=== PATIENT | female | born 1970 | race Caucasian/White ===

== ENCOUNTER 2017-01-30 18:29 | Emergency (ER) | payer BC, OTHER ==
[2017-01-30 18:40] VITALS: BMI 27.8
--- NOTE | 2017-01-30 19:51 | PDOC ---
History of Present Illness - General History Source: Patient Exam Limitations: No Limitations - History of Present Illness Initial Comments: The patient is a 46 yo F with a past medical history of heart murmur who presents with double vision and lightheadedness. The patient states that 1 week ago she felt cramps in her L leg that resolved. She states that 2 days ago she experienced blurry vision and lightheadedness that also resolved. This morning, she states she experienced double vision that last an hour. The patient also notes shes been getting headaches recently. She endorses 2 episodes of nausea last week. The patient denies weight changes. The patient states she took a recent trip to [place] and [employer] and returned on January 03. The patient notes she doesnt feel like herself. She denies diarrhea, vomiting and abdominal pain. The patient states she does not wear glasses or contacts. She notes she may be drinking more water than normal. She denies dysuria, hematuria, and urgency. Endorses mild frequency. She states she just finished her menstrual cycle and notes it was normal. Family Hx: DM, thyroid issues Social Hx: Occasional smoker, social ETOH use, denies illicit drug use <Елена Dexter - Last Filed: 01/30/17 20:53> <Mariluz Medeiros - Last Filed: 01/31/17 01:43> - General Chief Complaint: Lightheaded Stated Complaint: DIZZNESS Time Seen by Provider: 01/30/17 19:36 Past History <Елена Dexter - Last Filed: 01/30/17 20:53> - Past Medical History Anemia: Yes (IRON DEF.) Asthma: No Cancer: No Cardiac Disorders: Yes (MURMUR) CVA: No COPD: No CHF: No Dementia: No Diabetes: No GI Disorders: No Disorders: No HTN: No Hypercholesterolemia: No Liver Disease: No Seizures: No Thyroid Disease: No - Surgical History Abdominal Surgery: No Appendectomy: No Cardiac Surgery: No Cholecystectomy: No Lung Surgery: No Neurologic Surgery: No Orthopedic Surgery: No - Psycho/Social/Smoking Cessation Hx Suicidal Ideation: No Smoking History: Current some day smoker Have you smoked in the past 12 months: No Cigars Per Day: 1 Information on smoking cessation initiated: No Hx Alcohol Use: No Drug/Substance Use Hx: No Substance Use Type: None Hx Substance Use Treatment: No <Mariluz Medeiros - Last Filed: 01/31/17 01:43> - Past Medical History Allergies/Adverse Reactions: Allergies Allergy/AdvReac Type Severity Reaction Status Date / Time No Known Drug Allergies Allergy Verified 01/30/17 18:36 Home Medications: Ambulatory Orders NK [No Known Home Medication] 01/30/17 Review of Systems - Review of Systems Able to Perform ROS?: Yes Comments:: CONSTITUTIONAL: Absent: fever, chills, diaphoresis, generalized weakness, malaise, loss of appetite HEENT: Absent: rhinorrhea, nasal congestion, throat pain, throat swelling, difficulty swallowing, mouth swelling, ear pain, eye pain, visual Changes CARDIOVASCULAR: Absent: chest pain, syncope, palpitations, irregular heart rate, peripheral edema RESPIRATORY: Absent: cough, shortness of breath, dyspnea with exertion, orthopnea, wheezing, stridor, hemoptysis GASTROINTESTINAL: +nausea Absent: abdominal pain, abdominal distension, vomiting, diarrhea, constipation, melena, hematochezia GENITOURINARY: +mild frequency Absent: dysuria, hesitancy, hematuria, flank pain, genital pain MUSCULOSKELETAL: Absent: myalgia, arthralgia, joint swelling SKIN: Absent: rash, itching, pallor ENDOCRINE: Absent: unexplained weight gain, unexplained weight loss, heat intolerance, cold intolerance NEUROLOGIC: +headache, lightheadedness, blurry vision, double vision Absent: focal weakness or paresthesias, unsteady gait, seizure, mental status changes, bladder or bowel incontinence PSYCHIATRIC: Absent: anxiety, depression, suicidal or homicidal ideation, hallucinations. <Елена Dexter - Last Filed: 01/30/17 20:53> *Physical Exam - Vital Signs Last Vital Signs Temp Pulse Resp BP Pulse Ox 98.1 F 64 18 92/62 98 01/30/17 18:36 01/30/17 18:36 01/30/17 18:36 01/30/17 18:36 01/30/17 18:36 - Physical Exam Comments: GENERAL: Well developed, well nourished. Awake and alert. No acute distress. HEENT: Normocephalic, atraumatic. PERRLA, EOMI. No conjunctival pallor. Sclera are non- icteric. Moist mucous membranes. Oropharynx is clear. No nystagmus. NECK: Supple. Full ROM. No JVD. Carotid pulses 2+ and symmetric, without bruits. No thyromegaly. No lymphadenopathy. CARDIOVASCULAR: Regular rate and rhythm. No murmurs, rubs, or gallops. Distal pulses are 2+ and symmetric. PULMONARY: No evidence of respiratory distress. Lungs clear to auscultation bilaterally. No wheezing, rales or rhonchi. ABDOMINAL: Soft. Non-tender. Non-distended. No rebound or guarding. No organomegaly. Normoactive bowel sounds. MUSCULOSKELETAL Normal range of motion at all joints. No bony deformities or tenderness. No CVA tenderness. EXTREMITIES: No cyanosis. No clubbing. No edema. No calf tenderness. SKIN: Warm and dry. Normal capillary refill. No rashes. No jaundice. NEUROLOGICAL: Alert, awake, appropriate. Cranial nerves 2-12 intact. No deficits to light touch and temperature in face, upper extremities and lower extremities. No motor deficits in the in face, upper extremities and lower extremities. Normoreflexic in the upper and lower extremities. Normal speech. Toes are down-going bilaterally. Gait not assessed. PSYCHIATRIC: Cooperative. Good eye contact. Appropriate mood and affect. <Елена Dexter - Last Filed: 01/30/17 20:53> - Vital Signs Last Vital Signs Temp Pulse Resp BP Pulse Ox 98.1 F 64 18 92/62 98 01/30/17 18:36 01/30/17 18:36 01/30/17 18:36 01/30/17 18:36 01/30/17 18:36 <Mariluz Medeiros - Last Filed: 01/31/17 01:43> Heart Score/ECG Review #1 Sinus bradycardia @ 53 bpm. <IsaccЕлена - Last Filed: 01/30/17 20:53> ED Treatment Course - LABORATORY CBC & Chemistry Diagram: 01/30/17 20:28 01/30/17 20:28 <JaimeluzЕлена - Last Filed: 01/30/17 20:53> - LABORATORY CBC & Chemistry Diagram: 01/30/17 20:28 01/30/17 20:28 <Mariluz Medeiros - Last Filed: 01/31/17 01:43> Medical Decision Making - Medical Decision Making 01/30/17 20:12 Pt comes with blurry vision x 2 days and double vision this AM. Pt states that she also has lightheadedness. She has low BP today. She states that she is eating and drinking normallly; no increased thirst or urination - however pt has a fam hx of DM. SHe also has a fam hx of thyroid disorder. SHe has never had her vision checked in recent years and she has some difficulty with vision that she never corrected. 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 No N/V/D Menses is normal. Pt has no abdominal pains or fever or SOB or CP. 01/31/17 01:[address] normal, Labs normal, exam normal; she will be discharged and asked to follow with neuro as an outpatient <Mariluz Medeiros - Last Filed: 01/31/17 01:43> *DC/Admit/Observation/Transfer - Attestations Scribe Attestion: Documentation prepared by Елена Dexter, acting as medical assistant internal medicine for Mariluz Medeiros MD/DO. <Елена Dexter - Last Filed: 01/30/17 20:53> - Discharge Dispostion Admit: No <Mariluz Medeiros - Last Filed: 01/31/17 01:43> Diagnosis at time of Disposition: History of double vision, Dizziness, nonspecific - Discharge Dispostion Disposition: HOME Condition at time of disposition: Stable - Referrals Referrals: Javier Dean MD [Staff Physician] - - Patient Instructions Printed Discharge Instructions: Dizziness, Nonvertigo
[2017-01-30] MEDS ORDERED: SODIUM CHLORIDE 0.9% 500 ML INFUS.BAG IV ONE (19:52)
[2017-01-30 20:34] LABS: EOSINOPHIL 2.2 % (0-4.5); MCH 29.9 pg (25.7-33.7); MCHC 33.6 g/dl (32.0-36.0); MEAN CELL VOLUME 89.2 fl (80-96); MEAN PLT VOLUME 8.8 fl (7.5-11.1); NEUTROPHILS 50.2 % (42.8-82.8); PLATELET COUNT 273 K/MM3 (134-434); RDW 14.1 % (11.6-15.6); WHITE BLOOD COUNT 9.3 K/mm3 (4.0-10.0)
[2017-01-30 20:44] LABS: URINE APPEARANCE CLEAR; URINE BILIRUBIN NEGATIVE (NEGATIVE); URINE BLOOD NEGATIVE (NEGATIVE); URINE COLOR LTYELLOW; URINE GLUCOSE (UA) NEGATIVE (NEGATIVE); URINE KETONE NEGATIVE (NEGATIVE); URINE LEUK ESTERASE NEGATIVE (NEGATIVE); URINE NITRITE NEGATIVE (NEGATIVE); URINE PROTEIN NEGATIVE (NEGATIVE); URINE UROBILINOGEN NEGATIVE mg/dL (0.2-1.0)
[2017-01-30 20:47] LABS: INR 1.13 (0.82-1.09); PROTHROMBIN TIME (PATIENT) 12.5 SEC (9.98-11.88)
[2017-01-30 21:00] LABS: ALBUMIN 3.7 g/dl (3.4-5.0); ANION GAP 6 (8-16); BILIRUBIN,TOTAL 0.3 mg/dL (0.2-1.0); CALCIUM 8.6 mg/dL (8.5-10.1); CO2 26 mmol/L (21-32); CREATININE 1.1 mg/dL (0.55-1.02); GLUCOSE,RANDOM 82 mg/dL (74-106); SGPT/ALT 43 U/L (12-78); TOT PROT 7.6 g/dl (6.4-8.2)
[2017-01-30 21:01] LABS: ALK PHOS 79 U/L (45-117)
[2017-01-30 21:32] LABS: SGOT/AST 26 U/L (15-37)
[2017-01-30 22:31] VITALS: BP 135/80; PULSE 87; TEMP 98.3
--- NOTE | 2017-02-01 08:16 | EKG ---
Test Reason : Blood Pressure : / mmHG Vent. Rate : 053 BPM Atrial Rate : 053 BPM P-R Int : 134 ms QRS Dur : 084 ms QT Int : 404 ms P-R-T Axes : 031 006 023 degrees QTc Int : 379 ms SINUS BRADYCARDIA OTHERWISE NORMAL ECG WHEN COMPARED WITH ECG OF 24-MAR-2015 07:18, NO SIGNIFICANT CHANGE WAS FOUND Confirmed by ALONA SOUTH MD ([id number]) on 02/01/2017 8:16:18 AM Referred By: Confirmed By:ALONA SOUTH MD
== END 2017-01-30 22:34 | disposition home or self-care (01) ==
LOC: JER 18:29
DX: R42 Dizziness and giddiness (principal); R53.2 Functional quadriplegia; R01.1 Cardiac murmur, unspecified; D50.9 Iron deficiency anemia, unspecified; Z72.0 Tobacco use
CPT/HCPCS: 36415; 70450-TC; 80053; 81003; 84703; 85025; 85610; 93005; 93010; 99285-25

== ENCOUNTER 2018-07-01 17:09 | Emergency (ER) | payer OTHER ==
[2018-07-01 17:17] VITALS: BP 102/38; PULSE 60; TEMP 98; BMI 30.2
--- NOTE | 2018-07-01 18:18 | PDOC ---
History of Present Illness - General Chief Complaint: Chest Pain Stated Complaint: CHEST PAIN Time Seen by Provider: 07/01/18 18:10 History Source: Patient Exam Limitations: Clinical Condition - History of Present Illness Initial Comments: 07/01/18 18:22 Patient with no significant past medical history present with complaint of aching midsternal chest pain since yesterday. Patient reported she hadn't bilateral breast augmentation done 16 years ago and needs to be redone and was to make sure everything was fine. Patient described pain as 2/10 aching pain localized to mid chest area. Patient denies shortness of breath, dizziness, sweats, nausea or vomiting. Patient denies any numbness or tingling sensation. Timing/Duration: 24 hours Past History - Past Medical History Allergies/Adverse Reactions: Allergies Allergy/AdvReac Type Severity Reaction Status Date / Time No Known Drug Allergies Allergy Verified 07/01/18 17:14 Home Medications: Ambulatory Orders NK [No Known Home Medication] 01/30/17 Anemia: Yes (IRON DEF.) Asthma: No Cancer: No Cardiac Disorders: Yes (MURMUR) CVA: No COPD: No CHF: No Dementia: No Diabetes: No GI Disorders: No Disorders: No HTN: No Hypercholesterolemia: No Liver Disease: No Seizures: No Thyroid Disease: No - Surgical History Abdominal Surgery: No Appendectomy: No Cardiac Surgery: No Cholecystectomy: No Lung Surgery: No Neurologic Surgery: No Orthopedic Surgery: No - Immunization History Immunization Up to Date: Yes - Suicide/Smoking/Psychosocial Hx Smoking History: Never smoked Have you smoked in the past 12 months: No Cigars Per Day: 1 Information on smoking cessation initiated: No Hx Alcohol Use: No Drug/Substance Use Hx: No Substance Use Type: None Hx Substance Use Treatment: No Review of Systems - Review of Systems Able to Perform ROS?: Yes Is the patient limited German proficient: No Constitutional: No: Fever, Malaise, Weakness HEENTM: No: Blurred Vision, Recent change in vision, Double Vision Respiratory: No: Symptoms reported, See HPI, Cough, Orthopnea, Shortness of Breath, SOB with Exertion, SOB at Rest, Stridor, Wheezing, Productive cough, Hemoptysis, Other Cardiac (ROS): Yes: See HPI, Chest Tightness (mild). No: Chest Pain, Edema, Irregular Heart Rate, Lightheadedness, Palpitations, Syncope, Other ABD/GI: No: Nausea, Vomiting All Other Systems: Reviewed and Negative *Physical Exam - Vital Signs Last Vital Signs Temp Pulse Resp BP Pulse Ox 98.0 F 60 16 102/38 L 98 07/01/18 17:14 07/01/18 17:14 07/01/18 17:14 07/01/18 17:14 07/01/18 17:14 - Physical Exam Comments: 07/01/18 18:24 GENERAL: Well developed, well nourished. Awake and alert. No acute distress. HEENT: Normocephalic, atraumatic. PERRLA, EOMI. No conjunctival pallor. Sclera are non-icteric. Moist mucous membranes. Oropharynx is clear. NECK: Supple. Full ROM. CARDIOVASCULAR: Regular rate and rhythm. No murmurs, rubs, or gallops. Distal pulses are 2+ and symmetric. PULMONARY: No evidence of respiratory distress. Lungs clear to auscultation bilaterally. No wheezing, rales or rhonchi. ABDOMINAL: Soft. Non-tender. Non-distended. No rebound or guarding. No organomegaly. Normoactive bowel sounds. MUSCULOSKELETAL Normal range of motion at all joints. EXTREMITIES: No cyanosis. No clubbing. No edema. No calf tenderness. SKIN: Warm and dry. Normal capillary refill. No rashes. No jaundice. NEUROLOGICAL: Alert, awake, appropriate. Gait is normal without ataxia. PSYCHIATRIC: Cooperative. Good eye contact. Appropriate mood General Appearance: Yes: Nourished, Appropriately Dressed. No: Apparent Distress Moderate Sedation - Procedure Monitoring Vital Signs: Procedure Monitoring Vital Signs Temperature 98.0 F 07/01/18 17:14 Pulse Rate 60 07/01/18 17:14 Respiratory Rate 16 07/01/18 17:14 Blood Pressure 102/38 L 07/01/18 17:14 O2 Sat by Pulse Oximetry (%) 98 07/01/18 17:14 ED Treatment Course - RADIOLOGY Radiology Studies Ordered: Category Date Time Status CHEST PA & LAT [RAD] Stat Radiology 07/01/18 18:17 Ordered Medical Decision Making - Medical Decision Making 07/01/18 18:25 She with no significant past medication present with complaint of 2 of 10 aching midsternal chest pain since yesterday with no other symptoms. Clinical exam unremarkable with lungs clear to auscultation bilateral and no more heart exam. EKG shows normal sinus rhythm. Chest x-ray ordered to rule out acute Pathology. Symptoms likely muscular skeletal related and patient will be discharged home to take Motrin as needed for pain and PCP follow-up. 07/01/18 18:38 Chest x-ray shows no acute infiltrate or pathology. Patient is stable for discharge with PCP follow-up and strict follow-up to ED if symptoms worsens. *DC/Admit/Observation/Transfer Diagnosis at time of Disposition: Atypical chest pain - Discharge Dispostion Disposition: HOME Condition at time of disposition: Stable Decision to Admit order: No - Referrals - Patient Instructions Printed Discharge Instructions: DI for Atypical Chest Pain Additional Instructions: Your chest x-ray was normal. EKG was normal. Follow-up with primary care. Come back to emergency room if worsening chest pain, shortness of breath, and dizziness with vomiting. - Post Discharge Activity
--- NOTE | 2018-07-02 09:16 | EKG ---
Test Reason : Blood Pressure : / mmHG Vent. Rate : 054 BPM Atrial Rate : 054 BPM P-R Int : 136 ms QRS Dur : 092 ms QT Int : 426 ms P-R-T Axes : 056 034 042 degrees QTc Int : 403 ms POOR DATA QUALITY, INTERPRETATION MAY BE ADVERSELY AFFECTED SINUS BRADYCARDIA OTHERWISE NORMAL ECG WHEN COMPARED WITH ECG OF 30-JAN-2017 20:49, NO SIGNIFICANT CHANGE WAS FOUND Confirmed by AKOSUA ZHU, ALONA ([id number]) on 07/02/2018 9:15:58 AM Referred By: Confirmed By:ALONA SOUTH MD
== END 2018-07-01 18:54 | disposition home or self-care (01) ==
LOC: JERFT 17:09
DX: R07.89 Other chest pain (principal); D50.9 Iron deficiency anemia, unspecified; R01.1 Cardiac murmur, unspecified
CPT/HCPCS: 71046-TC-FY; 93005; 93010; 99281-25

== ENCOUNTER 2019-09-01 19:45 | Inpatient (IN) | payer BC, OTHER ==
[2019-09-01 19:48] VITALS: BMI 28.3
--- NOTE | 2019-09-01 20:26 | PDOC ---
History of Present Illness - General Chief Complaint: Vomiting/Diarrhea Stated Complaint: DIARRHEA / COUGH Time Seen by Provider: 09/01/19 20:16 History Source: Patient Exam Limitations: No Limitations Past History - Travel Traveled outside of the country in the last 30 days: No Close contact w/someone who was outside of country & ill: No - Past Medical History Allergies/Adverse Reactions: Allergies Allergy/AdvReac Type Severity Reaction Status Date / Time No Known Drug Allergies Allergy Verified 09/01/19 19:48 Home Medications: Ambulatory Orders NK [No Known Home Medication] 01/30/17 Anemia: Yes (IRON DEF.) Asthma: No Cancer: No Cardiac Disorders: Yes (MURMUR) CVA: No COPD: No CHF: No Dementia: No Diabetes: No GI Disorders: No Disorders: No HTN: No Hypercholesterolemia: No Liver Disease: No Seizures: No Thyroid Disease: No - Surgical History Abdominal Surgery: No Appendectomy: No Cardiac Surgery: No Cholecystectomy: No Lung Surgery: No Neurologic Surgery: No Orthopedic Surgery: No - Immunization History Immunization Up to Date: Yes - Psycho Social/Smoking Cessation Hx Smoking History: Never smoked Have you smoked in the past 12 months: No Cigars Per Day: 1 Hx Alcohol Use: No Drug/Substance Use Hx: No Substance Use Type: None Hx Substance Use Treatment: No Review of Systems - Review of Systems Able to Perform ROS?: Yes Comments:: 09/01/19 21:59 CONSTITUTIONAL: Absent: fever, chills, diaphoresis, generalized weakness, malaise, loss of appetite HEENT: Absent: rhinorrhea, nasal congestion, throat pain, throat swelling, difficulty swallowing, mouth swelling, ear pain, eye pain, visual Changes CARDIOVASCULAR: Absent: chest pain, loss of consciousness, palpitations, irregular heart rate, peripheral edema RESPIRATORY: Present: cough Absent: shortness of breath, dyspnea with exertion, orthopnea, wheezing, stridor, hemoptysis GASTROINTESTINAL: Present: Nausea, vomiting, diarrhea Absent: abdominal pain, abdominal distension, constipation, melena, hematochezia GENITOURINARY: Absent: dysuria, frequency, urgency, hesitancy, hematuria, flank pain, genital pain MUSCULOSKELETAL: Absent: myalgia, arthralgia, joint swelling SKIN: Absent: rash, itching, pallor HEMATOLOGIC/IMMUNOLOGIC: Absent: easy bleeding, easy bruising, lymphadenopathy, frequent infections ENDOCRINE: Absent: unexplained weight gain, unexplained weight loss, heat intolerance, cold intolerance NEUROLOGIC: Absent: headache, focal weakness or paresthesias, dizziness, unsteady gait, se izure, mental status changes, bladder or bowel incontinence PSYCHIATRIC: Absent: anxiety, depression, suicidal or homicidal ideation, hallucinations. Is the patient limited Spanish proficient: No *Physical Exam - Vital Signs Last Vital Signs Temp Pulse Resp BP Pulse Ox 97.3 F L 66 18 115/42 L 99 09/01/19 19:46 09/01/19 19:46 09/01/19 19:46 09/01/19 19:46 09/01/19 19:46 - Physical Exam 09/01/19 22:09 GENERAL: Well developed, well nourished. Awake and alert. No acute distress. HEENT: Normocephalic, atraumatic. PERRLA, EOMI. No conjunctival pallor. Sclera are non- icteric. Moist mucous membranes. Oropharynx is clear. NECK: Supple. Full ROM. No lymphadenopathy. CARDIOVASCULAR: Regular rate and rhythm. No murmurs, rubs, or gallops. Distal pulses are 2+ and symmetric. PULMONARY: No evidence of respiratory distress. Lungs clear to auscultation bilaterally. No wheezing, rales or rhonchi. ABDOMINAL: TTP to the RUQ and suprapubic area. (+) ramos's sign. Soft. Non-tender. Non- distended. No rebound or guarding. No organomegaly. Normoactive bowel sounds. MUSCULOSKELETAL Normal range of motion at all joints. No bony deformities or tenderness. No CVA tenderness. EXTREMITIES: No cyanosis. No clubbing. No edema. No calf tenderness. SKIN: Warm and dry. Normal capillary refill. No rashes. No jaundice. NEUROLOGICAL: Alert, awake, appropriate. Cranial nerves 2-12 intact. No deficits to light touch and temperature in face, upper extremities and lower extremities. No motor deficits in the in face, upper extremities and lower extremities. Normoreflexic in the upper and lower extremities. Normal speech. Toes are down-going bilaterally. Gait is normal without ataxia. PSYCHIATRIC: Cooperative. Good eye contact. Appropriate mood and affect. ED Treatment Course - LABORATORY CBC & Chemistry Diagram: 09/01/19 22:00 09/01/19 22:00 Medical Decision Making - Medical Decision Making 09/01/19 23:47 The patient is a 48 y/o F with no PMH who presents to the ER for cough, abdominal pain, nausea, vomiting, and diarrhea for three days. She states she is having 3-4 diarrhea movements every day with multiple episodes of vomiting. She states the pain is colicky. She notes the pain is mostly in the RUQ. Of note the patient is also concerned she may have lozoya virus as one of her co-workers is being voluntarily quarantined after attending an event where a person tested positive for lozoya virus. The patient is unsure of the co-worker who is being quarantined and does not know if she has been in close contact with them. According to the patient her coworker is not displaying symptoms of coronavirus per the email that was sent by her office. Pt is currently afebrile, and has not traveled in the past 30 days. PCP: Dr. Kaila Gotti A/P: abdominal pain On exam patient has right upper quadrant tenderness with a positive Ramos sign. Patient has not coughed while in the ER. Unlikely coronavirus as patient mostly has GI symptoms and is afebrile. Basic labs, fluids and right upper quadrant ultrasound ordered. Labs show liver enzymes mildly elevated Right upper quadrant ultrasound as read by imaging on-call: The gallbladder is contracted making it difficult to evaluate. The gallbladder wall varies between normal and mildly thickened. This may be due to nondistention. No gallstones or pericholecystic fluid noted. The common bile duct is borderline/normal dilated approximately 6.5 to 7.5 cm Cannot r/o choledocholithiasis at this time given mildly elevated liver enzymes, abdominal pain and dilated CBD ; will need MRCP Zosyn 4.5g for abx Admit to hospitalists; case discussed with Dr. Sandhu, attending Dr. Davalos Discharge - Discharge Information Problems reviewed: Yes Clinical Impression/Diagnosis: RUQ pain, Dilated cbd, acquired Condition: Stable - Admission Yes - Follow up/Referral - Patient Discharge Instructions - Post Discharge Activity
[2019-09-01] MEDS ORDERED: SODIUM CHLORIDE 1,000 ML IV STA (20:43)
[2019-09-01] MEDS ORDERED: ONDANSETRON 4 MG/2 ML VIAL IVPUSH ONE (20:43)
[2019-09-01] MEDS ORDERED: ONDANSETRON 4 MG/2 ML VIAL ONE (21:07)
[2019-09-01 22:17] LABS: BASO % 0.5 % (0-2.0); EOS % 1.8 % (0-4.5); HEMATOCRIT 37.8 % (32.4-45.2); HEMOGLOBIN 12.6 GM/dL (10.7-15.3); LYMPH % 43.9 % (8-40); MCH 29.9 pg (25.7-33.7); MCHC 33.4 g/dl (32.0-36.0); MEAN CELL VOLUME 89.5 fl (80-96); MEAN PLT VOLUME 9.2 fl (7.5-11.1); MONO % 6.9 % (3.8-10.2); NEUT % 46.9 % (42.8-82.8); PLATELET COUNT 302 K/MM3 (134-434); RBC 4.22 M/mm3 (3.60-5.2); RDW 13.2 % (11.6-15.6); WHITE BLOOD COUNT 6.8 K/mm3 (4.0-10.0)
[2019-09-01 22:37] LABS: PROTHROMBIN TIME (PATIENT) 11.8 SEC (9.7-13.0)
[2019-09-01 22:51] LABS: ALBUMIN 3.8 g/dl (3.4-5.0); BILIRUBIN,TOTAL 0.3 mg/dL (0.2-1); BLOOD UREA NITROGEN 10.6 mg/dL (7-18); CALCIUM 9.4 mg/dL (8.5-10.1); CREATININE 0.8 mg/dL (0.55-1.3); POTASSIUM 5.7 mmol/L (3.5-5.1); TOT PROT 7.8 g/dl (6.4-8.2)
[2019-09-02] MEDS ORDERED: PIPERACILLIN/TAZOB 4.5 GM 4.5 GM in DEXTROSE 5%-WATER 100 ML IVPB ONE (00:01)
[2019-09-02] MEDS ORDERED: PIPERACILLIN/TAZOB 4.5 GM 4.5 GM/100 ML BAG IVPB ONE (00:21)
[2019-09-02] MEDS ORDERED: SODIUM CHLORIDE 1,000 ML IV STA (00:30)
[2019-09-02 00:47] LABS: HCG,QUALITATIVE URINE Negative
[2019-09-02 00:55] LABS: EPI CELLS 12.1 /HPF (0-5/HPF); HYALINE CASTS 5 /lpf (0-8); PH,URINE 5.5 (5.0-8.0); URINE APPEARANCE CLOUDY; URINE BACTERIA 79.1 /hpf (NEGATIVE); URINE BILIRUBIN NEGATIVE (NEGATIVE); URINE COLOR YELLOW; URINE GLUCOSE (UA) NEGATIVE (NEGATIVE); URINE KETONE NEGATIVE (NEGATIVE); URINE LEUK ESTERASE TRACE (NEGATIVE); URINE NITRITE NEGATIVE (NEGATIVE); URINE PROTEIN NEGATIVE (NEGATIVE); URINE RBC 5 /hpf (0-4); URINE UROBILINOGEN 0.2 mg/dL (0.2-1.0); URINE WBC 7 /hpf (0-5)
[2019-09-02] MEDS ORDERED: ONDANSETRON 4 MG/2 ML VIAL IVPUSH PRN (01:51)
[2019-09-02] MEDS ORDERED: INSULIN (NOVOLOG) ASPART 100 UNITS/ML 10ML VIAL SQ ONE (01:52)
[2019-09-02] MEDS ORDERED: DEXTROSE 50%-WATER - 25 GM/50 ML VIAL IVPUSH ONE (01:52)
--- NOTE | 2019-09-02 01:53 | HP ---
CHIEF COMPLAINT: Abdominal pain PCP: Dr. Kaila Gotti HISTORY OF PRESENT ILLNESS: 48F no significant PMH who presents with 2 weeks of intermittent abdominal pain. Her pain is located in the right upper and lower quadrant, and ranges from 5/10- 7/10 when it occurs. Patient has had associated nausea with the abdominal pain, and had 2 episodes of NBNB emesis earlier this week. She has had 3 days of diarrhea, she had 4 episodes today. She endorses one episode of blood on the toilet paper but attributes to a history of hemorrhoids and has not had blood with other bowel movements. She has not had any change in diet, no one at home has had similar symptoms. She denies fever, cough, dysuria, hematuria, chest pain, and shortness of breath. Of note she has a questionable sick contact at work who was recently quarantined for being at an event with an individual who has confirmed coronavirus; this is what prompted her to come to the hospital today. ER course was notable for: (1) RUQ was completed preliminary read showed: the gallbladder is contracted making it difficult to evaluate. The gallbladder wall varies between normal and mildly thickened. This may be due to nondistention. No gallstones or pericholecystic fluid. Normal liver.Common bile duct is borderline normal/ dilated at approximately 6.5-7.5 cm. While this is borderline, recommend correlation with biliary enzyme to help exclude biliary obstruction. Nonobstructing right renal calculus. No right hydronephrosis. No right upper quadrant free fluid. (2) Zosyn 4.5 given (3) EKG done: NSR, Qtc 398 Recent Travel: None PAST MEDICAL HISTORY: None FAMILY MEDICAL HISTORY: None PAST SURGICAL HISTORY: None Social History: Smoking: Denies Alcohol: Occasional Drugs: Denies Allergies No Known Drug Allergies Allergy (Verified 09/01/19 19:48) HOME MEDICATIONS: Home Medications Medication Instructions Recorded NK [No Known Home Medication] 01/30/17 REVIEW OF SYSTEMS CONSTITUTIONAL: Absent: fever, chills, diaphoresis, generalized weakness, malaise, loss of appetite, weight change HEENT: Absent: rhinorrhea, nasal congestion, throat pain, throat swelling, difficulty swallowing, mouth swelling, ear pain, eye pain, visual changes CARDIOVASCULAR: Absent: chest pain, syncope, palpitations, irregular heart rate, lightheadedness, peripheral edema RESPIRATORY: Absent: cough, shortness of breath, dyspnea with exertion, orthopnea, wheezing, stridor, hemoptysis GASTROINTESTINAL: Present: Abdominal pain, nausea, vomiting,diarrhea. Absent: abdominal distension, constipation, melena, hematochezia GENITOURINARY: Absent: dysuria, frequency, urgency, hesitancy, hematuria, flank pain, genital pain MUSCULOSKELETAL: Absent: myalgia, arthralgia, joint swelling, back pain, neck pain SKIN: Absent: rash, itching, pallor HEMATOLOGIC/IMMUNOLOGIC: Absent: easy bleeding, easy bruising, lymphadenopathy, frequent infections ENDOCRINE: Absent: unexplained weight gain, unexplained weight loss, heat intolerance, cold intolerance NEUROLOGIC: Absent: headache, focal weakness or paresthesias, dizziness, unsteady gait, seizure, mental status changes, bladder or bowel incontinence PSYCHIATRIC: Absent: anxiety, depression, suicidal or homicidal ideation, hallucinations. PHYSICAL EXAMINATION Vital Signs - 24 hr 09/01/19 19:46 Temperature 97.3 F L Pulse Rate 66 Respiratory 18 Rate Blood Pressure 115/42 L O2 Sat by Pulse 99 Oximetry (%) GENERAL: Awake, alert, and fully oriented, in no acute distress. HEAD: Normal with no signs of trauma. EYES: EOMI EARS, NOSE, THROAT: Moist mucous membranes. NECK: Normal range of motion, supple without lymphadenopathy, JVD, or masses. LUNGS: CTAB HEART: s1 s2 present, no murmurs rubs or gallops ABDOMEN: Soft, nontender, normoactive bowel sounds, non distended. MUSCULOSKELETAL: Normal range of motion at all joints. No bony deformities or tenderness. UPPER EXTREMITIES: 2+ pulses, warm, well-perfused. No cyanosis. No clubbing. No peripheral edema. LOWER EXTREMITIES: 2+ pulses, warm, well-perfused. No calf tenderness. No pe ripheral edema. NEUROLOGICAL: Cranial nerves II-XII intact. Normal speech. Normal gait. PSYCHIATRIC: Cooperative. Good eye contact. Appropriate mood and affect. SKIN: Warm, dry, normal turgor, no rashes or lesions noted, normal capillary refill. Laboratory Results - last 24 hr 09/01/19 09/01/19 09/01/19 22:00 22:00 22:00 WBC 6.8 RBC 4.22 Hgb 12.6 Hct 37.8 MCV 89.5 MCH 29.9 MCHC 33.4 RDW 13.2 Plt Count 302 MPV 9.2 Absolute Neuts (auto) 3.2 Neutrophils % 46.9 Lymphocytes % 43.9 H Monocytes % 6.9 Eosinophils % 1.8 Basophils % 0.5 Nucleated RBC % 0 PT with INR 11.80 INR 1.00 Sodium 137 Potassium 5.7 H Chloride 108 H Carbon Dioxide 25 Anion Gap 4 L BUN 10.6 Creatinine 0.8 Est GFR (CKD-EPI)AfAm 101.04 Est GFR (CKD-EPI)NonAf 87.18 Random Glucose 89 Calcium 9.4 Total Bilirubin 0.3 AST 54 H ALT 68 H Alkaline Phosphatase 101 Total Protein 7.8 Albumin 3.8 Urine Color Urine Appearance Urine pH Ur Specific Roosevelt Urine Protein Urine Glucose (UA) Urine Ketones Urine Blood Urine Nitrite Urine Bilirubin Urine Urobilinogen Ur Leukocyte Esterase Urine WBC (Auto) Urine RBC (Auto) Urine Casts (Auto) U Epithel Cells (Auto) Urine Bacteria (Auto) Urine HCG, Qual 09/02/19 00:15 WBC RBC Hgb Hct MCV MCH MCHC RDW Plt Count MPV Absolute Neuts (auto) Neutrophils % Lymphocytes % Monocytes % Eosinophils % Basophils % Nucleated RBC % PT with INR INR Sodium Potassium Chloride Carbon Dioxide Anion Gap BUN Creatinine Est GFR (CKD-EPI)AfAm Est GFR (CKD-EPI)NonAf Random Glucose Calcium Total Bilirubin AST ALT Alkaline Phosphatase Total Protein Albumin Urine Color Yellow Urine Appearance Cloudy Urine pH 5.5 D Ur Specific Roosevelt 1.011 Urine Protein Negative Urine Glucose (UA) Negative Urine Ketones Negative Urine Blood 2+ H Urine Nitrite Negative Urine Bilirubin Negative Urine Urobilinogen 0.2 Ur Leukocyte Esterase Trace Urine WBC (Auto) 7 Urine RBC (Auto) 5 Urine Casts (Auto) 5 U Epithel Cells (Auto) 12.1 Urine Bacteria (Auto) 79.1 Urine HCG, Qual Negative ASSESSMENT/PLAN: 48F no significant PMH presents with abdominal pain associated with nausea, vomiting, diarrhea. 1) Abdominal Pain with Dilated CBD on imaging - RUQ U/S shows common bile duct is borderline normal/ dilated at approximately 6.5-7.5 cm. - MRCP ordered - NPO - NS @ 100 ml/hr - Zofran 4 mg IV PRN - GI consulted, Dr. Tejeda. Appreciate recs 2) Hyperkalemia -Insulin/D50 given -Repeat BMP in AM DVT: Lovenox 40 mg SQ F: NS @ 100 ml/hr E: Trend K+ N: NPO Dispo: Admit to Med/Surg Visit type - Emergency Visit Emergency Visit: Yes ED Registration Date: 09/02/19 Care time: The patient presented to the Emergency Department on the above date and was hospitalized for further evaluation of their emergent condition. - New Patient This patient is new to me today: Yes Date on this admission: 09/01/19 - Critical Care Critical Care patient: No ATTENDING PHYSICIAN STATEMENT I saw and evaluated the patient. I reviewed the resident's note and discussed the case with the resident. I agree with the resident's findings and plan as documented. SUBJECTIVE: OBJECTIVE: ASSESSMENT AND PLAN:
--- NOTE | 2019-09-02 02:08 | PN ---
Teaching Attending Note Name of Resident: Eli Sandhu ATTENDING PHYSICIAN STATEMENT I saw and evaluated the patient. I reviewed the resident's note and discussed the case with the resident. I agree with the resident's findings and plan as documented. SUBJECTIVE: 48-year-old woman previously healthy complains of 2 weeks of intermittent right upper quadrant abdominal pain, nausea and vomitingnonbloody, several episodes of nonbloody diarrhea. Denies any history of gallstones. Reports that her 23-year-old son has had a viral illness this past week. Patient denies any travel to [place] including [place], [place], [place]. She denied any fevers or chills. Reports that she has a history of hemorrhoids. OBJECTIVE: Last Vital Signs Temp Pulse Resp BP Pulse Ox 98.2 F 50 L 18 113/69 99 09/02/19 01:33 09/02/19 01:33 09/02/19 01:33 09/02/19 01:33 09/02/19 01:33 On physical exam patient was a well-nourished woman in no apparent distress. Head was atraumatic and normocephalic. Mucous membranes were moist. Neck was supple with no JVD. Cardiovascular exam was S1, S2, lungs were clear to auscultation bilaterally. Abdomen was soft, nontender with no masses palpable. Bowel sounds are present quadrants. Abnormal Lab Results 09/01/19 09/01/19 09/02/19 22:00 22:00 00:15 Lymphocytes % 43.9 H Potassium 5.7 H Chloride 108 H Anion Gap 4 L AST 54 H ALT 68 H Urine Blood 2+ H Ultrasound of abdomen was remarkable for borderline dilated CBD ASSESSMENT AND PLAN: 40-year-old woman with 2 weeks of nausea and vomiting, transaminitis, dilated CBD suspicious for possible symptomatic choledocholithiasis. Differential diagn osis also includes viral gastroenteritis especially given her recent sick contact. To [facility] MRCP N.p.o. GI consult Zofran IV as needed for nausea and vomiting Fluid hydration Protonix 40 mg IV SCDs for DVT prophylaxis
[2019-09-02] MEDS: SODIUM CHLORIDE 1,000 ML IV SCH ×2 (02:46→13:01)
[2019-09-02 08:02] LABS: BASO % 0.7 % (0-2.0); HEMATOCRIT 35.3 % (32.4-45.2); HEMOGLOBIN 11.8 GM/dL (10.7-15.3); LYMPH % 43.7 % (8-40); MCH 30.1 pg (25.7-33.7); MCHC 33.4 g/dl (32.0-36.0); MEAN CELL VOLUME 90.1 fl (80-96); MEAN PLT VOLUME 9.2 fl (7.5-11.1); MONO % 8.7 % (3.8-10.2); NEUT % 44.9 % (42.8-82.8); PLATELET COUNT 254 K/MM3 (134-434); RBC 3.91 M/mm3 (3.60-5.2); RDW 13.2 % (11.6-15.6); WHITE BLOOD COUNT 5.9 K/mm3 (4.0-10.0)
[2019-09-02 08:31] LABS: INR 1.04 (0.83-1.09); PROTHROMBIN TIME (PATIENT) 12.3 SEC (9.7-13.0)
--- NOTE | 2019-09-02 08:45 | CON.GI ---
Consult Consult Specialty:: GI Referred by:: Hospitalist Service Reason for Consultation:: Abdominal pain - History of Present Illness Chief Complaint: Abdominal pain, loose bowel movements and headaches History of Present Illness: 48F admitted through [facility] ER for evaluation of looser bowel movements, abdominal pain (right sided, described as cramping) and headahces for three days. She did not discuss these concerns with her PMD. There has been no diarrhea or bowel movement since admission. She complained of nausea yesterday. She had bloodwork in the ER that revealed a mild transaminitis. She had an abdominal US that revealed a contracted gallbladder without stones, equivocal wall thickening and borderline CBD. She had nausea yesterday that has since resolved. She denies vomiting, rectal bleeding, similar episodes in the past. She does not take any standing medications and did not take any OTC medications to help alleviate any of her symptoms. She denies fevers/chills. She denies recent change in diet aside from becoming a pescatarian over the last year. She denies any travel. She believes that her nephew may have had an URI recently. She had never had an upper endoscopy or colonoscopy. There is no family history of colorectal cancer, celiac disease, IBD. Liver chemistries are normal this morning. MRCP has been ordered and pending. - History Source History Provided By: Patient, Medical Record Limitations to Obtaining History: No Limitations - Past Medical History ...LMP: 05/29/14 ...: No Additional Medical History: Denies - Past Surgical History Additional Surgical History: Denies - Alcohol/Substance Use Hx Alcohol Use: No History of Substance Use: reports: None - Smoking History Smoking history: Never smoked Have you smoked in the past 12 months: No - Social History Usual Living Arrangement: Alone ADL: Independent Place of : [facility] History of Recent Travel: No Home Medications - Allergies Allergies/Adverse Reactions: Allergies Allergy/AdvReac Type Severity Reaction Status Date / Time No Known Drug Allergies Allergy Verified 09/01/19 19:48 - Home Medications Home Medications: Ambulatory Orders NK [No Known Home Medication] 01/30/17 Family Medical History Other Family History: Mother: Alive: thyroid disorder. Father: Alive: DM II. 2 brothers: healthy. 1 son: healthy. No family history of colorectal cancer or other GI malignancy Review of Systems - Review of Systems Constitutional: denies: Chills, Fever, Unintentional Wgt. Loss Cardiovascular: denies: Chest Pain Respiratory: denies: Cough, SOB Gastrointestinal: reports: Abdominal Pain, Diarrhea (Loose BM's), Nausea. denies: Constipation, Dysphagia, Melena, Rectal Bleeding, Vomiting, Vomiting Blood Physical Exam-GI Vital Signs: Vital Signs Temperature 97.7 F 09/02/19 03:44 Pulse Rate 68 09/02/19 03:44 Respiratory Rate 19 09/02/19 03:44 Blood Pressure 138/57 L 09/02/19 03:44 O2 Sat by Pulse Oximetry (%) 99 09/02/19 01:33 Constitutional: Yes: Calm Eyes: No: Sclera Icterus Cardiovascular: Yes: Regular Rate and Rhythm Respiratory: Yes: Diminished (at bases bilaterally) Gastrointestinal Inspection: No: Distention ...Auscultate: Yes: Normoactive Bowel Sounds ...Palpate: Yes: Soft, Tenderness (Mild TTP RLQ, RUQ). No: Hepatomegaly, Splenomegaly ...Percussion: No: Tympanitic Edema: No (No LE edema) Neurological: Yes: Alert Labs: CBC, BMP 09/02/19 07:18 INR, PTT INR 1.04 (0.83-1.09) 09/02/19 07:18 Hepatic Panel Total Bilirubin 0.4 mg/dL (0.2-1) 09/02/19 07:18 Direct Bilirubin 0.1 mg/dL (0.0-0.2) 09/02/19 07:18 AST 27 U/L (15-37) 09/02/19 07:18 ALT 56 U/L (13-61) 09/02/19 07:18 Alkaline Phosphatase 82 U/L (45-117) 09/02/19 07:18 Albumin 3.1 g/dl (3.4-5.0) L 09/02/19 07:18 Problem List - Problems (1) Abdominal pain Assessment/Plan: Mild right sided abdominal pain with constellation of other symptoms. No loose BM's. LFT's have improved and liver chemistry pattern on admission not suggestive of obstructive biliary process. ? if LFT abnormality reactive from viral process given lymphocytosis If continued loose bowel movements: Stool for culture, O&P, C. Diff MRCP is pending to reevaluate biliary tract If continued RLQ pain, CT scan of the abdomen and pelvis with contrast for further evaluation Clear liquids Code(s): R10.9 - UNSPECIFIED ABDOMINAL PAIN
[2019-09-02 08:53] LABS: ALBUMIN 3.1 g/dl (3.4-5.0); BILIRUBIN,DIRECT 0.1 mg/dL (0.0-0.2); BILIRUBIN,TOTAL 0.4 mg/dL (0.2-1); BLOOD UREA NITROGEN 7.4 mg/dL (7-18); CALCIUM 8.6 mg/dL (8.5-10.1); CREATININE 0.7 mg/dL (0.55-1.3); POTASSIUM 4.1 mmol/L (3.5-5.1); TOT PROT 6.1 g/dl (6.4-8.2)
[2019-09-02] MEDS ORDERED: ENOXAPARIN NA (PORCINE) 40 MG/0.4 ML DISP.SYRIN SQ SCH (10:00)
--- NOTE | 2019-09-02 11:07 | EKG ---
Test Reason : Blood Pressure : / mmHG Vent. Rate : 051 BPM Atrial Rate : 051 BPM P-R Int : 150 ms QRS Dur : 088 ms QT Int : 432 ms P-R-T Axes : 044 012 021 degrees QTc Int : 398 ms SINUS BRADYCARDIA WITH SINUS ARRHYTHMIA LOW VOLTAGE QRS WHEN COMPARED WITH ECG OF 01-JUL-2018 17:20, NO SIGNIFICANT CHANGE WAS FOUND Confirmed by MARIA DOLORES WARE MD ([id number]) on 09/02/2019 11:07:44 AM Referred By: Confirmed By:MARIA DOLORES WARE MD
--- NOTE | 2019-09-02 12:46 | PN ---
Physical Exam: SUBJECTIVE: Patient seen and examined at the bedside. Stated that she felt better. Endorsed one soft bowel movement overnight with no blood. Stated she continued to have pain in her abdomen that is improved. Denies nausea, vomiting, fever, chills, cp, sob, dizziness, lightheadedness, extremity pain. OBJECTIVE: Vital Signs Period Temp Pulse Resp BP Sys/Villagomez Pulse Ox Last 24 Hr 97.3 F-98.2 F 47-68 16-20 93-138/42-69 98-99 GENERAL: The patient is awake, alert, and fully oriented, in no acute distress. HEAD: Normal with no signs of trauma. EYES: PERRL, extraocular movements intact, conjunctiva clear. ENT: Oropharynx clear without exudates, moist mucous membranes. LUNGS: Breath sounds equal, clear to auscultation bilaterally, no wheezes, no crackles, no accessory muscle use. HEART: Regular rate and rhythm, S1, S2. ABDOMEN: Soft, tender to palpation in the RUQ and epigastric region, nondis tended, normoactive bowel sounds, no guarding, no rebound, no masses. EXTREMITIES: 2+ pulses, warm, well-perfused, no edema. NEUROLOGICAL: Cranial nerves II through XII grossly intact. 5/5 muscle strength bilaterally upper and lower extremities. PSYCH: Normal mood, normal affect. SKIN: Warm, dry, normal turgor, no rashes or lesions noted. Laboratory Results - last 24 hr 09/01/19 09/01/19 09/01/19 22:00 22:00 22:00 WBC 6.8 RBC 4.22 Hgb 12.6 Hct 37.8 MCV 89.5 MCH 29.9 MCHC 33.4 RDW 13.2 Plt Count 302 MPV 9.2 Absolute Neuts (auto) 3.2 Neutrophils % 46.9 Lymphocytes % 43.9 H Monocytes % 6.9 Eosinophils % 1.8 Basophils % 0.5 Nucleated RBC % 0 PT with INR 11.80 INR 1.00 Sodium 137 Potassium 5.7 H Chloride 108 H Carbon Dioxide 25 Anion Gap 4 L BUN 10.6 Creatinine 0.8 Est GFR (CKD-EPI)AfAm 101.04 Est GFR (CKD-EPI)NonAf 87.18 Random Glucose 89 Calcium 9.4 Total Bilirubin 0.3 Direct Bilirubin AST 54 H ALT 68 H Alkaline Phosphatase 101 Total Protein 7.8 Albumin 3.8 Urine Color Urine Appearance Urine pH Ur Specific Michael Urine Protein Urine Glucose (UA) Urine Ketones Urine Blood Urine Nitrite Urine Bilirubin Urine Urobilinogen Ur Leukocyte Esterase Urine WBC (Auto) Urine RBC (Auto) Urine Casts (Auto) U Epithel Cells (Auto) Urine Bacteria (Auto) Urine HCG, Qual 09/02/19 09/02/19 09/02/19 00:15 07:18 07:18 WBC 5.9 RBC 3.91 Hgb 11.8 Hct 35.3 MCV 90.1 MCH 30.1 MCHC 33.4 RDW 13.2 Plt Count 254 MPV 9.2 Absolute Neuts (auto) 2.7 Neutrophils % 44.9 Lymphocytes % 43.7 H Monocytes % 8.7 Eosinophils % 2.0 Basophils % 0.7 Nucleated RBC % 0 PT with INR 12.30 INR 1.04 Sodium Potassium Chloride Carbon Dioxide Anion Gap BUN Creatinine Est GFR (CKD-EPI)AfAm Est GFR (CKD-EPI)NonAf Random Glucose Calcium Total Bilirubin Direct Bilirubin AST ALT Alkaline Phosphatase Total Protein Albumin Urine Color Yellow Urine Appearance Cloudy Urine pH 5.5 D Ur Specific Michael 1.011 Urine Protein Negative Urine Glucose (UA) Negative Urine Ketones Negative Urine Blood 2+ H Urine Nitrite Negative Urine Bilirubin Negative Urine Urobilinogen 0.2 Ur Leukocyte Esterase Trace Urine WBC (Auto) 7 Urine RBC (Auto) 5 Urine Casts (Auto) 5 U Epithel Cells (Auto) 12.1 Urine Bacteria (Auto) 79.1 Urine HCG, Qual Negative 09/02/19 07:18 WBC RBC Hgb Hct MCV MCH MCHC RDW Plt Count MPV Absolute Neuts (auto) Neutrophils % Lymphocytes % Monocytes % Eosinophils % Basophils % Nucleated RBC % PT with INR INR Sodium 142 Potassium 4.1 Chloride 112 H Carbon Dioxide 25 Anion Gap 6 L BUN 7.4 Creatinine 0.7 Est GFR (CKD-EPI)AfAm 118.74 Est GFR (CKD-EPI)NonAf 102.45 Random Glucose 88 Calcium 8.6 Total Bilirubin 0.4 Direct Bilirubin 0.1 AST 27 ALT 56 Alkaline Phosphatase 82 Total Protein 6.1 L Albumin 3.1 L Urine Color Urine Appearance Urine pH Ur Specific Michael Urine Protein Urine Glucose (UA) Urine Ketones Urine Blood Urine Nitrite Urine Bilirubin Urine Urobilinogen Ur Leukocyte Esterase Urine WBC (Auto) Urine RBC (Auto) Urine Casts (Auto) U Epithel Cells (Auto) Urine Bacteria (Auto) Urine HCG, Qual Active Medications Generic Name Dose Route Start Last Admin Trade Name Freq PRN Reason Stop Dose Admin Sodium Chloride 1,000 mls @ 100 mls/hr 09/02/19 01:15 09/02/19 02:46 Normal Saline - IV 100 mls/hr ASDIR JONES Administration Ondansetron HCl 4 mg 09/02/19 01:51 Zofran Injection IVPUSH Q4H PRN NAUSEA AND/OR VOMITING IMAGING RUQ Fatty liver versus hepatocellular disease. Contracted gallbladder with borderline thickening of its wall. No gross intraluminal stones or pericholecystic free fluid are identified. Dilated common bile duct measuring 7.7 mm for which further evaluation is needed. Nonobstructing right mid renal stone measuring 1.2 x 0.5 cm ASSESSMENT/PLAN: Margret San is a 48 female with no significant past medical history admitted for abdominal pain in the setting of common bile duct questionable for recently passed stone. Abdominal Pain with Dilated CBD on imaging - RUQ U/S shows common bile duct is dilated at 7.7mm, with borderline thickening of the wall, no gross stones or pericholecystic fluid - MRCP ordered - clear liquid - NS @ 100 ml/hr - Zofran 4 mg IV PRN - GI consulted, recs appreciated - if continued diarrhea can get stool studies - if continued abdominal pain can obtain CT abd/pelvis with contrast DVT PPx - SCDs - hold chemical prophylaxis for possible procedures, can restart if no procedures to be done FEN - NS @ 125 ml/hr - continue to monitor electrolytes and replete as necessary, hyperkalemia from admission resolved - clear liquid diet Dispo - continue to monitor on Med-Surg Visit type - Emergency Visit Emergency Visit: Yes ED Registration Date: 09/02/19 Care time: The patient presented to the Emergency Department on the above date and was hospitalized for further evaluation of their emergent condition. - New Patient This patient is new to me today: Yes Date on this admission: 09/02/19 - Critical Care Critical Care patient: No
--- NOTE | 2019-09-02 15:19 | PN ---
Teaching Attending Note Name of Resident: Mykel Engle ATTENDING PHYSICIAN STATEMENT I saw and evaluated the patient. I reviewed the resident's note and discussed the case with the resident. I agree with the resident's findings and plan as documented. SUBJECTIVE: no fever or chills. pain in RUQ only when some one pushes. No N.V today. she feels better Reports intermittent episodes of RUQ pain in past few weeks . reported one episode of burnig with urination this am , no hematuria. OBJECTIVE: NAD Cv : RRR, 2/6 SM at [facility]. ( known to patient ) Lungs: CTAB Ext : No edema or erythema Abd: soft, TTP in epigastric area, RUQ, and suprapubic area, no guarding , no rebound tenderness . Neg Ramos''s ASSESSMENT AND PLAN: 48 y/o man with h/o heart murmur, who presented with abd pain, N/V . 1- RUQ pain. N/v . ? billiary colic. ? passed a stone . ? viral gastroenteritis . No evidence of cholecystitis on US. NO stones - US with dilated CBD. LFts improved. - MRCP pending - cont IVF - cont clears - UA does not indicate UTI, has trace blood and 5 RBCs in urine. ? passed a stone /sludge . follow urine cx 2- Hyperkalemia: unclear etiology. treated in Er . resolved 3- dispo: HLOC . add SCds dc lovenox in case she needs a procedure
[2019-09-02] MEDS ORDERED: SODIUM CHLORIDE 1,000 ML IV SCH (16:50)
[2019-09-03 07:54] VITALS: TEMP 98.1
[2019-09-03 07:55] LABS: BLOOD UREA NITROGEN 6.7 mg/dL (7-18); CALCIUM 8.3 mg/dL (8.5-10.1); CREATININE 0.7 mg/dL (0.55-1.3); MAGNESIUM 1.9 mg/dL (1.8-2.4)
[2019-09-03 08:10] LABS: HEMATOCRIT 34.6 % (32.4-45.2); HEMOGLOBIN 11.7 GM/dL (10.7-15.3); MCH 30.4 pg (25.7-33.7); MCHC 33.9 g/dl (32.0-36.0); MEAN CELL VOLUME 89.7 fl (80-96); MEAN PLT VOLUME 8.9 fl (7.5-11.1); PLATELET COUNT 262 K/MM3 (134-434); RBC 3.86 M/mm3 (3.60-5.2); RDW 13.1 % (11.6-15.6); WHITE BLOOD COUNT 5.6 K/mm3 (4.0-10.0)
[2019-09-03] MEDS ORDERED: MAG HYDROX/AL HYDROX/SIMETH -MYLANTA- ORAL SUSPENSION PO ONE (08:10)
[2019-09-03] MEDS ORDERED: PANTOPRAZOLE 40 MG TABLET PO ONE (08:15)
[2019-09-03] MEDS ORDERED: MAG HYDROX/AL HYDROX/SIMETH 30 ML UNIT-DOSE CUP PO ONE (08:30)
--- NOTE | 2019-09-03 11:26 | PN ---
Teaching Attending Note Name of Resident: Mykel Engle ATTENDING PHYSICIAN STATEMENT I saw and evaluated the patient. I reviewed the resident's note and discussed the case with the resident. I agree with the resident's findings and plan as documented. SUBJECTIVE: seen at 9 am cont to have mild epigastric and RUQ abd pain. no N/V . saw what she thinks a small amount of blood in her stool yesterday. has h/o hemorrhoids , she thinks it is hemorrhoidal bleed . NO SOB, has heart burn sensation in her retrosternal area. OBJECTIVE: NAD CV: RRR, 2/6 SM at [facility]. Lungs: CTAB Ext: No edema or erythema. Abd: soft, TTP in epigastric area, RUQ, no guarding , no rebound tenderness. Neg Ramos' sign ASSESSMENT AND PLAN: 48 y/o man with h/o heart murmur, who presented with abd pain, N/V . 1- RUQ pain. N/v. ? billiary colic. ? passed a stone. ? viral gastroenteritis . No evidence of cholecystitis on US. NO stones - LFts are pending for today - prelim MRI showed dilation in CBD - will ask dr. Dewey's opinion on next step . - cont IVF - small amount of blood in stool, is likely due to her hemorrhoids. 2- Hyperkalemia: unclear etiology. treated in Er . resolved SCds off lovenox in case she needs a procedure
[2019-09-03 11:53] LABS: ALBUMIN 3.2 g/dl (3.4-5.0); BILIRUBIN,DIRECT 0.1 mg/dL (0.0-0.2); BILIRUBIN,TOTAL 0.4 mg/dL (0.2-1); TOT PROT 6.2 g/dl (6.4-8.2)
--- NOTE | 2019-09-03 15:12 | DS ---
Physical Exam: SUBJECTIVE: Patient seen and examined at the bedside. Stated that she still occasionally some pain in her abdomen but it was improved and she felt like she had more energy. Stated she tolerated her clear liquid and her regular diet without issues. Did have some indigestion like symptoms. Denied cp, sob, n/v/c/d, headaches, lightheadedness, dizziness, fevers, chills, numbness, tingling. OBJECTIVE: Vital Signs Period Temp Pulse Resp BP Sys/Villagomez Pulse Ox Last 24 Hr 97.2 F-98.1 F 48-58 20-20 89-106/54-62 98 PHYSICAL EXAM GENERAL: The patient is awake, alert, and fully oriented, in no acute distress. HEAD: Normal with no signs of trauma. EYES: PERRL, extraocular movements intact, conjunctiva clear. ENT: Oropharynx clear without exudates, moist mucous membranes. LUNGS: Breath sounds equal, clear to auscultation bilaterally, no wheezes, no crackles, no accessory muscle use. HEART: Regular rate and rhythm, S1, S2. ABDOMEN: Soft, tender to palpation in the RUQ and epigastric region, nondistended, normoactive bowel sounds, no guarding, no rebound, no masses. EXTREMITIES: 2+ pulses, warm, well-perfused, no edema. NEUROLOGICAL: Cranial nerves II through XII grossly intact. 5/5 muscle strength bilaterally upper and lower extremities. PSYCH: Normal mood, normal affect. SKIN: Warm, dry, normal turgor, no rashes or lesions noted. LABS Laboratory Results - last 24 hr 09/03/19 09/03/19 05:55 05:55 WBC 5.6 RBC 3.86 Hgb 11.7 Hct 34.6 MCV 89.7 MCH 30.4 MCHC 33.9 RDW 13.1 Plt Count 262 MPV 8.9 Sodium 142 Potassium 4.0 Chloride 112 H Carbon Dioxide 25 Anion Gap 5 L BUN 6.7 L Creatinine 0.7 Est GFR (CKD-EPI)AfAm 118.74 Est GFR (CKD-EPI)NonAf 102.45 Random Glucose 84 Calcium 8.3 L Magnesium 1.9 Total Bilirubin 0.4 Direct Bilirubin 0.1 AST 23 ALT 54 Alkaline Phosphatase 81 Total Protein 6.2 L Albumin 3.2 L HOSPITAL COURSE: Margret San is a 48 female with no significant past medical history admitted for abdominal pain in the setting of common bile duct questionable for recently passed stone. RUQ noted fatty liver vs hepatocellular disease, contracted gallbladder with borderline thickening with no stones or peicholecystic fluid. Noted dilated common bile duct. MCRP was ordered which noted partly distended gallbladder, mild dilation of the common bile duct with no stones visible, diffuse fatty liver infiltration with small hepatic cysts, no masses, no collections. Patient had elevated LFTs upon admission that had trended down by day of discharge. Was given fluids for hydration and was able to tolerate clear liquid and regular diet. Was seen by GI who agreed with MRCP. GI was spoken to and stated that ERCP is not advised as the patient has improved clinical picture, no fevers, no signs of infection, or elevation of LFTs or bilirubin. Patient is advised to follow up at a tertiary care center with Dr. Fernando Carranza for possible EUS to evaluate biliary tree and hepatic cysts. Was advised to follow up with GI for her hemorrhoids as well. Patient can also consider CT with liver protocol to investigate cysts for possible hemangiomas. Patient was advised to stay hydrated and avoid fatty meals. Was advised to have repeat bloodwork for her liver enzymes in 1 week. Patient to follow up with her PCP and management information systems director. Patient was in agreement with the plan and reiterated it. Patient was discharged in stable medical condition. Date of Admission:09/02/19 Date of Discharge: 09/03/19 Minutes to complete discharge: 35 Discharge Summary Problems reviewed: Yes Reason For Visit: RIGHT UPPER QUADRANT ABDOMINAL PAIN Condition: Improved - Instructions Diet, Activity, Other Instructions: You came in for abdominal pain which has resolved on its own in the hospital. You were found to have external skin tags on your rectum which suggests that you have had hemorrhoids. Please modify your diet as directed below. You had imaging which showed a dilation of your biliary tree (ducts that carry bile from your gallbladder and liver to your small intestine) which may suggest that you might have had a stone that had passed. You were also noted to have some cysts on your liver. You are advised to follow up with a management information systems director for these findings. MEDICATIONS Please continue to take all of your medications as prescribed. REFERRALS Please follow up with your primary care physician, Dr. Kaila Gotti, within 1 week. Please follow up with the Police Communications Dispatcher, Dr. Fernando Carranza, within 1 week. You may have a procedure call and endoscopic ultrasound to investigate your gastrointestinal system further. The number to contact for an appointment is [phone]. Also , have the management information systems director check your hemorrhoids SPECIAL INSTRUCTIONS Please modify your diet to increase your vegetable and fruit intake, while decreasing red meat and processed food intake. Have bloodwork taken in 1 week to measure your liver enzymes at your primary care office. If you develop worsening abdominal pain, nausea, vomiting, fevers, chest pain, bloody stools, painful stools or any other general feelings of unwellness, please call 911 or go to your nearest emergency room. Referrals: Fernando Carranza [Other] - 1 Week Kaila Gotti MD [Non Staff, Medical] - Disposition: HOME - Home Medications Comprehensive Discharge Medication List: Ambulatory Orders NK [No Known Home Medication] 01/30/17 Problem List - Problems (1) Abdominal pain Code(s): R10.9 - UNSPECIFIED ABDOMINAL PAIN (2) Dilated cbd, acquired Code(s): K83.8 - OTHER SPECIFIED DISEASES OF BILIARY TRACT (3) RUQ pain Code(s): R10.11 - RIGHT UPPER QUADRANT PAIN (4) Fibroid Code(s): D25.9 - LEIOMYOMA OF UTERUS, UNSPECIFIED This patient is new to me today: No Emergency Visit: Yes ED Registration Date: 09/02/19 Care time: The patient presented to the Emergency Department on the above date and was hospitalized for further evaluation of their emergent condition. Critical Care patient: No - Discharge Referral Referred to [facility] Med [facility] No
[2019-09-03 15:54] VITALS: BP 97/57; PULSE 67
== END 2019-09-03 16:01 | disposition home or self-care (01) | DRG 446 ==
LOC: JER 19:45 → JERBED 09-02 00:31 → J8W 09-02 01:59
PROVIDERS: ADMIT Internal Medicine; ATTEND Internal Medicine
DX: K83.8 Other specified diseases of biliary tract (principal); E87.5 Hyperkalemia; A08.4 Viral intestinal infection, unspecified; R74.0 Nonspecific elevation of levels of transaminase and lactic acid dehydrogenase [LDH]; K64.4 Residual hemorrhoidal skin tags; K76.89 Other specified diseases of liver; D25.9 Leiomyoma of uterus, unspecified; R10.9 Unspecified abdominal pain
CPT/HCPCS: 36415; 71046-TC-FY; 74181-TC; 76705-TC; 80048; 80053; 80076; 81003; 83735; 84703; 85025; 85027; 85610; 87086; 93005; 93010; 99285-25; J7030